=== PATIENT | male | born 1965 | race Two or more races ===

== ENCOUNTER 2017-03-19 10:20 | Emergency (ER) | payer MEDICAID ==
[2017-03-19] MEDS: IBUPROFEN 800 MG TAB PO (10:51)
[2017-03-19] MEDS: predniSONE 20 MG TAB PO (10:53)
[2017-03-19] MEDS: ALBUTEROL 0.083% (NEB) 2.5 MG/3 ML AMP NEB (10:58)
[2017-03-19] MEDS: IPRATROPIUM (NEB) 0.5 MG/2.5 ML AMP NEB (10:58)
== END 2017-03-19 12:58 | disposition home or self-care (01) ==
LOC: FTE 10:20
DX: J06.9 Acute upper respiratory infection, unspecified (principal); J45.909 Unspecified asthma, uncomplicated; Z87.891 Personal history of nicotine dependence
CPT/HCPCS: 71010; 87400; 94664; 99284-25